=== PATIENT | female | born 1960 | race African-American/Black ===

== ENCOUNTER 2016-09-30 02:28 | Emergency (ER) | payer SELFPAY ==
[~2016-09-30] VITALS: Ht 154.9 cm; Wt 100.0 kg
[~2016-09-30 02:28] MED LIST: MECL25CH PO
[2016-09-30 02:33] VITALS: BP 130/74; PULSE 76; RESP 16; TEMP 98.4; O2SAT 100
--- NOTE | 2016-09-30 02:48 | PD ---
HPI Chief Complaint: Injury Time Seen by Provider: 02:38 Travel History International Travel<30 days: No Contact w/Intl Traveler<30days: No Traveled to known affect area: No History of Present Illness HPI 55-year-old [id number] female presents for evaluation of left hand pain. She reports that one month ago she was play wrestling with her when she jammed her left thumb into by accident. Since then she has had pain at the base of the left thumb and left first metacarpal region. The pain is a pinching pain which is constant, worse with movement. 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 She has not yet been seen for evaluation of this issue. She denies any other injuries and she has no other complaints at this time. PFSH Past Medical History Arthritis: Yes Blood Disorders: No Cancer: No Diminished Hearing: No Psychiatric: No Menopausal: Yes Past Surgical History Genitourinary Surgery: No Other Surgery: No Social History Alcohol Use: Yes (HOLIDAYS ) Tobacco Use: No Substance Use: No Allergies-Medications (Allergen,Severity, Reaction): Coded Allergies: acetaminophen (Unverified Allergy, Severe, ITCHING, 09/30/16) hydrocodone (Unverified Allergy, Severe, ITCHING, 09/30/16) oxycodone (Unverified Allergy, Severe, ITCHING, 09/30/16) propoxyphene (Unverified Allergy, Severe, ITCHING, 09/30/16) Reported Meds & Prescriptions Reported Meds & Active Scripts Active Meclizine Hcl (Meclizine HCl) 25 Mg Chw 25 Mg PO Q8H PRN Review of Systems Musculoskeletal: Positive: Pain, No: Limited ROM Skin: Positive Other (denies open wounds) Physical Exam Narrative GENERAL: Well-developed well-nourished female in no acute distress SKIN: Warm and dry. No bruising or soft tissue swelling. CARDIOVASCULAR: Regular rate and rhythm. No murmur appreciated. RESPIRATORY: No accessory muscle use. Clear to auscultation. Breath sounds equal bilaterally. Musculoskeletal: No obvious deformities. There is tenderness to palpation along the shaft of the left first metacarpal, left first MCP joint. There is no tenderness to palpation along the ulnar aspect of the left thumb. There is no joint laxity. The patient has normal pinching strength. She has full flexion, extension, abduction, adduction of the left thumb at The MCP joint. Data Data Last Documented VS Vital Signs Date Time Temp Pulse Resp B/P (MAP) Pulse Ox O2 Delivery O2 Flow Rate FiO2 09/30/16 02:33 98.4 76 16 130/74 (92) 100 Orders Orders Hand, Complete ([id number]) (09/30/16 ) Splint Or Brace Apply/Monitor (09/30/16 03:18) [facility] Medical Decision Making Medical Screen Exam Complete: Yes Emergency Medical Condition: Yes Medical Record Reviewed: Yes Differential Diagnosis Thumb sprain, fracture, ulnar collateral ligament rupture, scaphoid fracture Narrative Course 55-year-old female presents with persistent pain in the left thumb MCP joint and first metacarpal after "jamming" her thumb against her 1 month ago. There is no evidence of ulnar collateral ligament rupture. X-ray imaging will be obtained. Extremities reveals no acute abnormalities. There is no evidence of periosteal formation or bone callus despite this injury occurred 1 month ago and therefore I don't suspect a nondisplaced fracture or a scaphoid fracture. Examination is consistent with sprain to the collateral ligaments of the left thumb MCP joint. The patient will be discharged with a AlumaFoam finger splint for comfort. Recommended [id number] ibuprofen for pain. Stable for discharge. Diagnosis Primary Impression: Left thumb sprain Qualified Codes: S63.642A - Sprain of metacarpophalangeal joint of left thumb , initial encounter Additional Instructions: Splint as needed. Ice pack several times a day for 15 minutes at a time as needed. Xyef-jvh-[id number] ibuprofen every 6 hours as needed for discomfort. Follow-up with primary care physician in 2 weeks if symptoms persist. Med/Other Pt SpecificInfo: Orthopedic Instructions Disposition: DISCHARGE HOME Condition: Stable Huy Skinner Sep 30, 2016 02:48
--- NOTE | 2016-09-30 03:16 | RADRPT ---
EXAM DATE/TIME: 09/30/2016 02:59 [facility] COMPARISON: No previous studies available for comparison. INDICATIONS : Left hand pain. MEDICAL HISTORY : None. SURGICAL HISTORY : None. ENCOUNTER: Initial ACUITY: 1 month PAIN SCORE: 4/10 LOCATION: Left lateral hand. FINDINGS: Three view examination of the left hand demonstrates no soft tissue swelling, dislocation, or fractur e. The carpal bones appear intact. The interphalangeal and metacarpophalangeal joints are intact. Bony mineralization is normal. CONCLUSION: Unremarkable examination of the left hand. Everette Negrete MD on September 30, 2016 at 3:14 Board Certified Radiologist. This report was verified electronically.
== END 2016-09-30 06:05 | disposition home or self-care (01) ==
LOC: NEPK 02:28
DX: S63.642A Sprain of metacarpophalangeal joint of left thumb, initial encounter (principal); X50.0XXA Overexertion from strenuous movement or load, initial encounter; Y93.83 Activity, rough housing and horseplay
CPT/HCPCS: 73130; 99283

== ENCOUNTER 2017-04-17 18:45 | Emergency (ER) | payer SELFPAY ==
[2017-04-17 20:15] VITALS: BP 148/88; PULSE 74; RESP 16; TEMP 98.2; O2SAT 99
[2017-04-17 22:33] VITALS: BP 134/73; PULSE 79; RESP 15; O2SAT 98
--- NOTE | 2017-04-17 22:41 | PD ---
HPI Chief Complaint: Musculoskeletal Complaint Time Seen by Provider: 22:28 Travel History International Travel<30 days: No Contact w/Intl Traveler<30days: No Traveled to known affect area: No History of Present Illness HPI This is a 56-year-old female presents for evaluation of left leg pain. Symptoms started initially 1 month ago. She reports that it is a sharp pain in the left buttocks/lower back region that radiates down to the left foot with associated dysesthesias in the left foot. Symptoms worsened 2 weeks ago when she stepped down from a ladder in her pain has been worse in the left calf since then. Pain has been increasingly worsening and this is what prompted evaluation today. She tried ibuprofen as well as leftover muscle relaxants with minimal relief. Denies any recent travel, recent surgery, incontinence, saddle anesthesia. No other complaints. PFSH Past Medical History Medical History: Denies Significant Hx Arthritis: Yes Blood Disorders: No Cancer: No Diminished Hearing: No Psychiatric: No Menopausal: Yes Past Surgical History Surgical History: No Previous Surgery Abdominal Surgery: No Genitourinary Surgery: No Thoracic Surgery: No Other Surgery: No Social History Alcohol Use: Yes (HOLIDAYS ) Tobacco Use: No Substance Use: No Allergies-Medications (Allergen,Severity, Reaction): Coded Allergies: acetaminophen (Unverified Allergy, Severe, ITCHING, 04/17/17) hydrocodone (Unverified Allergy, Severe, ITCHING, 04/17/17) oxycodone (Unverified Allergy, Severe, ITCHING, 04/17/17) propoxyphene (Unverified Allergy, Severe, ITCHING, 04/17/17) Reported Meds & Prescriptions Reported Meds & Active Scripts Active No Active Prescriptions or Reported Medications Review of Systems Except as stated in HPI: all other systems reviewed are Neg Physical Exam Narrative GENERAL: Well-developed well-nourished female no acute distress SKIN: Warm and dry. HEAD: Atraumatic. Normocephalic. EYES: Pupils equal and round. No scleral icterus. No injection or drainage. ENT: No nasal bleeding or discharge. Mucous membranes pink and moist. NECK: Trachea midline. No JVD. CARDIOVASCULAR: Regular rate and rhythm. No murmur appreciated. RESPIRATORY: No accessory muscle use. Clear to auscultation. Breath sounds equal bilaterally. GASTROINTESTINAL: Abdomen soft, non-tender, nondistended. Hepatic and splenic margins not palpable. MUSCULOSKELETAL: No obvious deformities. There is tenderness to palpation to the left lumbosacral region. There is tenderness to palpation to the left calf musculature. The Achilles tendon is intact and nontender. There is no lower extremity edema. The patient maintains full range of motion in all joints in the lower extremities. 2+ dorsalis pedis and posterior tibial pulses bilaterally. NEUROLOGICAL: Awake and alert. No obvious cranial nerve deficits. Motor grossly within normal limits. Normal speech. Data Data Last Documented VS Vital Signs Date Time Temp Pulse Resp B/P (MAP) Pulse Ox O2 Delivery O2 Flow Rate FiO2 04/17/17 22:33 79 15 134/73 (93) 98 Room Air 04/17/17 20:15 98.2 Orders Orders Us Leg Venous Doppler (04/17/17 22:33) Tibia/Fibula (Ap/Lat) (04/17/17 ) Spine, Lumbar - Ltd (Ap & Lat) (04/17/17 ) Ketorolac Inj (Toradol Inj) (04/17/17 22:45) Orphenadrine Inj (Norflex Inj) (04/17/17 22:45) MDM Medical Decision Making Medical Screen Exam Complete: Yes Emergency Medical Condition: Yes Medical Record Reviewed: Yes Differential Diagnosis Left leg strain, lumbosacral radiculopathy, compression fracture, DVT, muscle tear, Achilles tendon rupture Narrative Course X-ray imaging of lumbar spine, left tibia-fibula, left leg ultrasound were performed and they are all negative. Examination is consistent with lumbosacral radiculopathy as well as a strain in her left calf muscle secondary to stepping down from a ladder 2 weeks ago. She is stable for discharge. Diagnosis Primary Impression: Lumbosacral radiculopathy Additional Impressions: Sprain of calcaneofibular ligament of left ankle Muscle strain of left lower extremity Additional Instructions: Continue ibuprofen for pain. Rest, avoid strenuous activity. Follow-up with primary care physician in 2 weeks. Return for any emergent medical conditions. Med/Other Pt SpecificInfo: No Change to Meds Scripts No Active Prescriptions or Reported Meds Disposition: 01 DISCHARGE HOME Condition: Stable Huy Skinner Apr 17, 2017 22:41
[2017-04-17] MEDS ORDERED: ORPHENADRINE INJ 60 MG/2 ML AMP IM ONE (22:45)
[2017-04-17] MEDS ORDERED: KETOROLAC TROMETHAMINE 60 MG/2 ML (IM) VIAL IM ONE (22:45)
--- NOTE | 2017-04-17 23:14 | RADRPT ---
EXAM DATE/TIME: 04/17/2017 22:48 [facility] COMPARISON: No previous studies available for comparison. INDICATIONS : Pain from stress, no traumatic injury. MEDICAL HISTORY : None. SURGICAL HISTORY : None. ENCOUNTER: Initial ACUITY: 2 months PAIN SCORE: 5/10 LOCATION: Left lower leg. FINDINGS: Two view examination of the left tibia demonstrates no evidence of fracture or dislocation. Bony min eralization is normal. The soft tissue structures are intact. CONCLUSION: Negative examination. Marco Taveras MD on April 17, 2017 at 23:12 Board Certified Radiologist. This report was verified electronically.
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
--- NOTE | 2017-04-18 00:06 | RADRPT ---
EXAM DATE/TIME: 04/17/2017 23:34 [facility] COMPARISON: No previous studies available for comparison. INDICATIONS : Left leg pain. MEDICAL HISTORY : Glasses. Arthritis. SURGICAL HISTORY : None. ENCOUNTER: Initial ACUITY: 1 week PAIN SCORE: 5/10 LOCATION: Left leg. TECHNIQUE: Venous ultrasound of the leg was performed from the inguinal ligament to the proximal calf. Real-henry e, color Doppler and spectral tracing, compression and augmentation techniques were used. FINDINGS: There is normal compressibility of the deep venous system from the inguinal region to the proximal ca lf. No echogenic clot is seen in the lumen of the common femoral, femoral, popliteal, and posterior tibial veins. There is a normal response of the venous system to proximal and distal augmentation an d respiration. CONCLUSION: Negative study. No venous thrombosis of the left lower extremity. Emiliano Lima MD on April 18, 2017 at 0:04 Board Certified Radiologist. This report was verified electronically.
== END 2017-04-18 00:54 | disposition home or self-care (01) ==
LOC: NEPD 18:45
DX: M54.17 Radiculopathy, lumbosacral region (principal); S93.412A Sprain of calcaneofibular ligament of left ankle, initial encounter; X58.XXXA Exposure to other specified factors, initial encounter
CPT/HCPCS: 72100; 73590; 93971; 96372; 99284; J1885; J2360